=== PATIENT | male | born 1990 | race Two or more races ===

== ENCOUNTER 2016-03-02 11:01 | Emergency (ER) | payer OTHER ==
[2016-03-02] MEDS ORDERED: LORAZEPAM 1 MG TABLET ONE (12:07)
== END 2016-03-02 12:36 | disposition home or self-care (01) ==
LOC: ED 11:01
DX: F41.0 Panic disorder [episodic paroxysmal anxiety] (principal); R06.02 Shortness of breath; R07.9 Chest pain, unspecified